=== PATIENT | female | born 1955 | race Caucasian/White ===

== ENCOUNTER → 2016-06-19 | Day surgery (SDC) | payer BC ==
[~2016-06-19] VITALS: Ht 162.6 cm; Wt 92.2 kg
[~2016-06-19] MED LIST: ALDACTONE25 MG PO; FISH OIL 1,0001 EAC1 PO; LOTENSIN40 MG PO; METAMUCIL PACKE1 PKT PO; PREMARIN0.3 MG PO; VALTREX1000 MG PO; WOMEN'S DAILY1 EAC1 PO
== END | disposition disaster alternative care site (69) ==
LOC: GPOC 06-12 15:00 → GEND 07:58 → GPOC 15:00
PROC: 0DBP8ZX Excision of Rectum, Via Natural or Artificial Opening Endoscopic, Diagnostic (ICD-10-PCS; principal; 2016-06-19)
PROC: 0DBL8ZX Excision of Transverse Colon, Via Natural or Artificial Opening Endoscopic, Diagnostic (ICD-10-PCS; 2016-06-19)
PROC: 0DBH8ZX Excision of Cecum, Via Natural or Artificial Opening Endoscopic, Diagnostic (ICD-10-PCS; 2016-06-19)
PROC: 0DBF8ZX Excision of Right Large Intestine, Via Natural or Artificial Opening Endoscopic, Diagnostic (ICD-10-PCS; 2016-06-19)
DX: K51.90 Ulcerative colitis, unspecified, without complications (principal); D17.5 Benign lipomatous neoplasm of intra-abdominal organs; K62.1 Rectal polyp; I10 Essential (primary) hypertension; K59.09 Other constipation; Z92.29 Personal history of other drug therapy; E78.5 Hyperlipidemia, unspecified; E66.9 Obesity, unspecified; Z68.35 Body mass index [BMI] 35.0-35.9, adult; Z79.899 Other long term (current) drug therapy; Z90.49 Acquired absence of other specified parts of digestive tract; Z90.710 Acquired absence of both cervix and uterus; Z98.890 Other specified postprocedural states
CPT/HCPCS: J2001; J7030